=== PATIENT | female | born 1930 | race Caucasian/White ===

== ENCOUNTER 2018-01-25 13:36 | Emergency (ER) | payer MEDICARE ==
--- NOTE | 2018-01-25 14:44 | RAD ---
3 VIEW RIGHT SHOULDER: Date: 01/25/18 INDICATION: Right shoulder pain. FINDINGS: There is a slight inferior and anterior location of the humeral head relative to the scapular glenoid . Prominent undersurface osteophyte at the AC joint is present. There is osteophytosis at the glenohu meral articulation. No fracture is seen. IMPRESSION: Mild anterior and inferior location of the humeral head relative to the scapular glenoid. 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 Recommend correlation with physical exam and, if necessary, follow-up imaging. POS: [facility]
== END 2018-01-25 15:10 | disposition home or self-care (01) ==
LOC: MADERS 13:36
DX: M24.411 Recurrent dislocation, right shoulder (principal); I10 Essential (primary) hypertension; E03.9 Hypothyroidism, unspecified; E78.00 Pure hypercholesterolemia, unspecified; Z79.899 Other long term (current) drug therapy; Z79.82 Long term (current) use of aspirin